=== PATIENT | male | born 1965 | race Caucasian/White ===

== ENCOUNTER 2016-03-03 04:01 | Inpatient (IN) | payer OTHER ==
[~2016-03-03] VITALS: Ht 175.3 cm; Wt 97.6 kg
[2016-03-03 05:17] LABS: CHLORIDE 103 mEq/L (99-109); POTASSIUM 4.1 mEq/L (3.7-5.4); SODIUM 141 mEq/L (136-147)
[2016-03-03 05:19] LABS: GLUCOSE 178 mg/dL (70-99)
[2016-03-03 05:20] LABS: ANION GAP 13 MEQ/L (2-14)
[2016-03-03 05:21] LABS: TOTAL BILIRUBIN 0.7 mg/dL (0.0-1.0)
[2016-03-03 05:22] LABS: ALKALINE PHOSPHATASE 53 IU/L (3-129)
[2016-03-03 05:23] LABS: GFR ESTIMATE (CALCULATED) 49 mL/min/
[2016-03-03 05:24] LABS: UREA NITROGEN (BUN) 19 mg/dL (9-23)
[2016-03-03 05:26] LABS: LIPASE 80 U/L (1.0-51.0)
[2016-03-03 05:33] LABS: HEMATOCRIT 43.3 % (38.0-50.0); MCH 29.4 PG (29.0-34.0); MCHC 35.8 G/DL (30.0-36.0); MCV 82.2 FL (86-99); PLATELET COUNT 260 K/uL (156-360); RBC DIS.WIDTH-SD 38.1 % (39-53); RED BLOOD COUNT 5.27 M/uL (4.00-5.50); WHITE BLOOD COUNT 15.5 K/uL (4.1-10.2)
[2016-03-03] MEDS ORDERED: DEXILANT60 MG PO (07:22)
[2016-03-03] MEDS ORDERED: FENOFIBRATE145 M1 PO (07:22)
[2016-03-03 08:10] LABS: EOSINOPHIL (%) 0.8 % (0-5); EOSINOPHIL COUNT 0.1 K/uL (0-0.3); IMMATURE GRANULOCYTE (%) 0.3 % (0.0-0.7); LYMPHOCYTE COUNT 3.1 K/uL (1.0-2.8); MONOCYTE (%) 7.4 % (3-12); MONOCYTE COUNT 1.1 K/uL (0-0.8); NEUTROPHIL (%) 70.9 % (45-76); NEUTROPHIL COUNT 10.7 K/uL (1.8-6.4)
[2016-03-03 11:04] LABS: INTACT PARATHYROID HORMONE 88 pg/mL (10-69)
[2016-03-03 12:04] VITALS: BP 159/72
[2016-03-03 15:54] VITALS: BP 155/70
[2016-03-03 19:23] VITALS: BP 130/61
[2016-03-03 22:04] LABS: ADD MIUA? NO; BILIRUBIN NEGATIVE; BLOOD NEGATIVE; COLOR YELLOW ((YELLOW)); GLUCOSE (STRIP) NEGATIVE; KETONES NEGATIVE; LEUKOCYTES NEGATIVE; NITRITE NEGATIVE; PH, URINE 6.5 (5-8); PROTEIN (STRIP) NEGATIVE; SPECIFIC GRAVITY 1.027 (1.000-1.030); UCUL ADDED? NO; UROBILINOGEN 0.2 MG/DL (0.2-1.0)
[2016-03-03 23:59] VITALS: BP 140/66
[2016-03-04 03:49] VITALS: BP 140/64
[2016-03-04 06:51] LABS: HEMATOCRIT 37.5 % (38.0-50.0); MCH 28.4 PG (29.0-34.0); MCHC 32.8 G/DL (30.0-36.0); RBC DIS.WIDTH-CV 13.1 % (11.8-14.6); RBC DIS.WIDTH-SD 41.6 % (39-53); RED BLOOD COUNT 4.33 M/uL (4.00-5.50)
[2016-03-04 06:53] LABS: MCV 86.6 FL (86-99); WHITE BLOOD COUNT 7.1 K/uL (4.1-10.2)
[2016-03-04 07:26] LABS: ANION GAP 9 MEQ/L (2-14); CHLORIDE 107 MEQ/L (99-109); GFR ESTIMATE (CALCULATED) > 59 mL/min/; GLUCOSE 89 mg/dL (70-99); MAGNESIUM 1.9 mg/dl (1.3-2.7); SAMPLE HEMOLYSIS CHECK 0; SAMPLE ICTERIC CHECK 0; SAMPLE LIPEMIA CHECK 0; SODIUM 140 MEQ/L (136-147); UREA NITROGEN (BUN) 13 mg/dL (9-23)
[2016-03-04 08:24] LABS: MEAN PLAT.VOLUME 11.9 uM^3 (9.0-12.4)
[2016-03-04 08:27] LABS: PLATELET COUNT 175 K/uL (156-360)
[2016-03-04 11:24] VITALS: BP 120/57
[2016-03-04 16:00] VITALS: BP 132/74
[2016-03-04 23:43] VITALS: BP 147/71
[2016-03-05 07:48] LABS: DELETE MACHINE DIFF? YES
[2016-03-05 07:52] LABS: ANION GAP 10 MEQ/L (2-14); CHLORIDE 106 MEQ/L (99-109); GFR ESTIMATE (CALCULATED) 57 mL/min/; GLUCOSE 94 mg/dL (70-99); POTASSIUM 4.6 MEQ/L (3.7-5.4); SAMPLE HEMOLYSIS CHECK 1; SAMPLE ICTERIC CHECK 0; SAMPLE LIPEMIA CHECK 0; SODIUM 139 MEQ/L (136-147); UREA NITROGEN (BUN) 11 mg/dL (9-23)
[2016-03-05 07:55] LABS: ANISOCYTOSIS 1+; EOSINOPHIL ABS CT 0.12; HEMATOCRIT 37.1 % (38.0-50.0); MACROCYTES OCC; MCH 29.9 PG (29.0-34.0); MCHC 34.8 G/DL (30.0-36.0); MCV 85.9 FL (86-99); MICROCYTOSIS 1+; RBC DIS.WIDTH-CV 13.1 % (11.8-14.6); RBC DIS.WIDTH-SD 40.8 % (39-53); RED BLOOD COUNT 4.32 M/uL (4.00-5.50); USER ID TLW; WHITE BLOOD COUNT 5.9 K/uL (4.1-10.2)
[2016-03-05 08:01] LABS: PLATELET COUNT UNABLE TO REPORT K/uL (156-360)
[2016-03-05 08:18] VITALS: BP 126/73
[2016-03-05] MEDS ORDERED: DOXYCYCLINE HY100 M3 PO (11:02)
[2016-03-05 11:47] VITALS: BP 139/86
[2016-03-05 13:37] LABS: ANION GAP 10 MEQ/L (2-14); CHLORIDE 106 MEQ/L (99-109); GFR ESTIMATE (CALCULATED) > 59 mL/min/; GLUCOSE 97 mg/dL (70-99); POTASSIUM 3.9 MEQ/L (3.7-5.4); SAMPLE HEMOLYSIS CHECK 0; SAMPLE ICTERIC CHECK 0; SAMPLE LIPEMIA CHECK 0; SODIUM 141 MEQ/L (136-147); UREA NITROGEN (BUN) 12 mg/dL (9-23)
== END 2016-03-05 14:21 | disposition home or self-care (01) | DRG 389 ==
LOC: EME 04:01 → 2EAST 09:31 → EDOF 09:31 → 2EAST 11:48
PROVIDERS: Internal Medicine
DX: K56.5 Intestinal adhesions [bands] with obstruction (postinfection) (principal); N17.9 Acute kidney failure, unspecified; E83.52 Hypercalcemia; E11.9 Type 2 diabetes mellitus without complications; E86.0 Dehydration; K21.9 Gastro-esophageal reflux disease without esophagitis; M47.816 Spondylosis without myelopathy or radiculopathy, lumbar region; F17.210 Nicotine dependence, cigarettes, uncomplicated; E78.5 Hyperlipidemia, unspecified; K76.0 Fatty (change of) liver, not elsewhere classified; G47.33 Obstructive sleep apnea (adult) (pediatric); M19.90 Unspecified osteoarthritis, unspecified site; Z99.89 Dependence on other enabling machines and devices; Z86.010 Personal history of colon polyps; Z80.3 Family history of malignant neoplasm of breast
CPT/HCPCS: 71010; 74020; 74177; 80048; 80048 91; 80053; 80069; 81003; 82948; 83605; 83690; 83735; 83970; 85025; 85027; 93005; 94799; 99281; 99285; J1170; J1644; J1815; J2405; J3010; J3475; J7030; S0028

== ENCOUNTER 2017-04-09 00:15 | Emergency (ER) | payer OTHER ==
[~2017-04-09] VITALS: Ht 175.3 cm; Wt 100.6 kg
[~2017-04-09 00:15] MED LIST: DEXILANT60 MG PO; DOXYCYCLINE HY100 M3 PO; FENOFIBRATE145 M1 PO
[2017-04-09 01:05] LABS: BASOPHIL (%) 0.3 % (0-1); EOSINOPHIL (%) 2.3 % (0-5); EOSINOPHIL COUNT 0.2 K/uL (0-0.3); HEMATOCRIT 36.9 % (38.0-50.0); HEMOGLOBIN 12.6 G/DL (12.5-16.6); IMMATURE GRANULOCYTE (%) 0.4 % (0.0-0.7); LYMPHOCYTE (%) 32.2 % (15-42); LYMPHOCYTE COUNT 2.2 K/uL (1.0-2.8); MCH 29.2 PG (29.0-34.0); MCHC 34.1 G/DL (30.0-36.0); MCV 85.6 FL (86-99); MONOCYTE (%) 8.3 % (3-12); MONOCYTE COUNT 0.6 K/uL (0-0.8); NEUTROPHIL (%) 56.5 % (45-76); NEUTROPHIL COUNT 3.9 K/uL (1.8-6.4); PLATELET COUNT 172 K/uL (156-360); RBC DIS.WIDTH-CV 13.2 % (11.8-14.6); RBC DIS.WIDTH-SD 41.4 % (39-53); RED BLOOD COUNT 4.31 M/uL (4.00-5.50)
[2017-04-09 01:16] LABS: CHLORIDE 106 mEq/L (99-109); POTASSIUM 4.1 mEq/L (3.7-5.4); SODIUM 139 mEq/L (136-147)
[2017-04-09 01:17] LABS: GLUCOSE 168 mg/dL (70-99)
[2017-04-09 01:21] LABS: CREATININE 1.1 mg/dL (0.6-1.3); GFR ESTIMATE (CALCULATED) > 59 mL/min/ (58.99-99999)
[2017-04-09 01:22] LABS: UREA NITROGEN (BUN) 12 mg/dL (9-23)
[2017-04-09 01:26] LABS: TROP-I INTERPRETATION NEGATIVE; TROPONIN-I 0.02 ng/mL (0.0-0.30)
[2017-04-09] MEDS ORDERED: MECLIZINE HCL25 MG PO (02:40)
[2017-04-09] MEDS ORDERED: ZITHROMAX Z-PA250 MG PO (02:40)
[2017-04-09 02:50] VITALS: BP 150/80
== END 2017-04-09 02:55 | disposition home or self-care (01) ==
LOC: EME 00:15
PROVIDERS: Emergency Medicine
DX: J32.9 Chronic sinusitis, unspecified (principal); R42 Dizziness and giddiness; K21.9 Gastro-esophageal reflux disease without esophagitis; E11.9 Type 2 diabetes mellitus without complications; F17.200 Nicotine dependence, unspecified, uncomplicated
CPT/HCPCS: 70450; 71046; 80048; 84484; 85025; 93005; 94640; 99281; 99284; J1100